=== PATIENT | male | born 1995 | race Caucasian/White ===

== ENCOUNTER 2017-01-26 08:06 | Emergency (ER) | payer MEDICAID, SELFPAY ==
[~2017-01-26] VITALS: Ht 182.9 cm; Wt 84.0 kg
[2017-01-26] MEDS ORDERED: ALBUTEROL/IPRATROPIUM 2.5MG/0.5MG, 3 ML NPPB ONE (08:30)
[2017-01-26] MEDS ORDERED: ALBUTEROL/IPRATROPIUM 2.5MG/0.5MG, 3 ML ONE (08:59)
[2017-01-26 09:49] LABS: PATH.CAST-FLAG NOT PRESENT; SPERM-FLAG NOT PRESENT; SRC-FLAG NOT PRESENT; XTAL-FLAG NOT PRESENT; YLC-FLAG NOT PRESENT
[2017-01-26 10:10] VITALS: BP 108/65
== END 2017-01-26 10:42 | disposition home or self-care (01) ==
LOC: ED 08:31
DX: J45.41 Moderate persistent asthma with (acute) exacerbation (principal)
CPT/HCPCS: 71020; 81001; 87086; 93005; 94640; 99285; J7512; J7620

== ENCOUNTER 2017-10-07 10:18 | Emergency (ER) | payer SELFPAY ==
[~2017-10-07] VITALS: Ht 185.4 cm; Wt 82.1 kg
[2017-10-07 10:19] VITALS: BP 114/76
[2017-10-07] MEDS ORDERED: IBUPROFEN 200 MG TABLET ONE (10:53)
[2017-10-07] MEDS ORDERED: IBUPROFEN 200 MG TABLET PO ONE (11:00)
== END 2017-10-07 11:34 | disposition home or self-care (01) ==
LOC: ED 11:28
DX: S90.32XA Contusion of left foot, initial encounter (principal); J45.909 Unspecified asthma, uncomplicated; X58.XXXA Exposure to other specified factors, initial encounter; Y93.89 Activity, other specified; Y92.89 Other specified places as the place of occurrence of the external cause; Y99.8 Other external cause status
CPT/HCPCS: 99284

== ENCOUNTER 2018-09-05 01:02 | Emergency (ER) | payer MEDICAID ==
[~2018-09-05] VITALS: Ht 182.9 cm; Wt 77.0 kg
--- NOTE | 2018-09-05 01:04 | NUR ---
PT BIB [facility] FOR RIGHT ANKLE PAIN AND SWELLING. PT STATES HE SKATES A LOT, BUT DENIES ANY KNOWN INJURIES. PT IN [facility] AT THIS TIME, AWAITING ERP. PT VSS UPON ARRIVAL TO [facility] ED. PT VERBALIZES UNDERSTANDING OF ER PROCESS. CALL LIGHT IS WITHIN REACH.
[2018-09-05] MEDS ORDERED: ALBU0.63 NEB (01:22)
[2018-09-05] MEDS ORDERED: ACETAMINOPHEN 500 MG TABLET ONE (01:24)
[2018-09-05] MEDS ORDERED: IBUPROFEN 600 MG TABLET ONE (01:24)
[2018-09-05] MEDS ORDERED: DIPH,PERTUSS(ACELL),TET VAC/PF 0.5 ML IM-VACC ONE ×2 (01:25→01:30)
[2018-09-05] MEDS ORDERED: ACETAMINOPHEN 500 MG TABLET PO ONE (01:30)
[2018-09-05] MEDS ORDERED: IBUPROFEN 600 MG TABLET PO ONE (01:30)
--- NOTE | 2018-09-05 01:32 | NUR ---
BREAK RN: PT RESTING ON GURNEY, MONITORS APPLIED, SIDERAILS UP X2, PT MEDICATED PER MAR, CALL LIGHT WITHIN REACH
[2018-09-05 01:33] VITALS: BP 107/67
[2018-09-05 01:42] LABS: BASOPHILS # (AUTO) 0.04 x10^3/uL (0-0.1); BASOPHILS % (AUTO) 1 % (0-1); EOSINOPHILS # (AUTO) 0.29 x10^3/uL (0-0.4); EOSINOPHILS % (AUTO) 5 % (1-7); LYMPHOCYTES # (AUTO) 1.99 x10^3/uL (1-3.4); LYMPHOCYTES % (AUTO) 31 % (22-44); MD NO; MEAN CORPUSCULAR HEMOGLOBIN 29.7 pg (27.5-34.5); MEAN CORPUSCULAR VOLUME 89.8 fL (81-97); MONOCYTES # (AUTO) 0.61 x10^3/uL (0.2-0.8); MONOCYTES % (AUTO) 10 % (2-9); NEUTROPHILS # (AUTO) 3.42 x10^3/uL (1.8-6.8); NEUTROPHILS % (AUTO) 54 % (42-75); PLATELET COUNT 227 x10^3/uL (130-400); RED BLOOD COUNT 4.51 x10^6/uL (4.38-5.82); RED CELL DISTRIBUTION WIDTH 14.1 % (9.4-14.8)
[2018-09-05 01:47] LABS: ALBUMIN 3.6 g/dL (3.4-5.0); ANION GAP 4 mmol/L (5-15); CALCIUM 8.4 mg/dL (8.5-10.1); CHLORIDE 111 mmol/L (98-107); CREATININE 1.03 mg/dL (0.7-1.3)
[2018-09-05] MEDS ORDERED: LIDOCAINE-MPF 1%, 2ML ONE (02:07)
[2018-09-05] MEDS ORDERED: LIDOCAINE 1%, 2ML INFIL ONE (02:30)
[2018-09-05] MEDS ORDERED: SULFAMETH./TRIMETHOPRIM DS 800MG/160MG TABLET ONE (03:17)
[2018-09-05] MEDS ORDERED: CEPHALEXIN 500 MG CAPSULE ONE (03:17)
--- NOTE | 2018-09-05 03:21 | NUR ---
PT MEDICATED PER MAR.
[2018-09-05] MEDS ORDERED: SULFAMETH./TRIMETHOPRIM DS 800MG/160MG TABLET PO ONE (03:30)
[2018-09-05] MEDS ORDERED: CEPHALEXIN 500 MG CAPSULE PO ONE (03:30)
--- NOTE | 2018-09-05 04:45 | NUR ---
PT D/C WITH D/C SUMMARY AND SCRIPTS. ALL QUESTIONS ANSWERED. PT PROVIDED WITH CRUTCHES FOR D/C HOME. PT ABLE TO PERFORM RETURN DEMONSTRATION OF CORRECT USE OF CRUTCHES. PT AMBULATES WITH CRUTCHES TO REGISTRATION DESK FOR D/C BACK TO HOTEL ROOM. PT DENIES ANY OTHER NEEDS PERTAINING TO THIS VISIT.
== END 2018-09-05 04:48 | disposition home or self-care (01) ==
LOC: ED 01:11
DX: L03.115 Cellulitis of right lower limb (principal); J45.909 Unspecified asthma, uncomplicated; F17.200 Nicotine dependence, unspecified, uncomplicated
CPT/HCPCS: 20605; 36415; 73610; 80048; 82040; 85025; 90471; 90715; 99284; J3490

== ENCOUNTER 2020-01-14 17:33 | Emergency (ER) | payer SELFPAY ==
[~2020-01-14] VITALS: Ht 182.9 cm; Wt 79.4 kg
[~2020-01-14 17:33] MED LIST: ALBU0.63 NEB
[2020-01-14] MEDS ORDERED: LIDOCAINE 1%-EPI 1:100K, 20ML ONE (18:42)
[2020-01-14] MEDS ORDERED: LIDOCAINE 1%-EPI 1:100K, 20ML SQ ONE (19:00)
--- NOTE | 2020-01-14 19:00 | NUR ---
RECEIVED REPORT, ASSUMED CARE OF 24 YEAR OLD MALE TO ED FOR POSTERIOR HEAD LACERATION. HE IS CURRENTLY AWAITING CLOSURE OF WOUND W [place]. HE IS ASLEEP YET ROUSABLE TO VOICE. WOUND WILL BE IRRIGATED THEN REPAIRED.
[2020-01-14] MEDS ORDERED: NEOSPORIN OINT. PKT 1 PACKET ONE (20:17)
[2020-01-14 20:30] VITALS: BP 124/74
--- NOTE | 2020-01-14 20:31 | NUR ---
POST WOUND CLOSURE, PATIENT WAS GIVEN WASHCLOTHS FOR LEGS AND NEOPSPORIN WAS APPLIED TO LEG WOUNDS. HE WAS GIVEN INSTRUCTIONS WHEN TO RETURN FOR STAPLE REMOVAL AND VERBALIZED UNDERSTANDING.
== END 2020-01-14 20:35 ==
LOC: ED 20:29
DX: S01.01XA Laceration without foreign body of scalp, initial encounter (principal); S09.90XA Unspecified injury of head, initial encounter; J45.909 Unspecified asthma, uncomplicated; F17.200 Nicotine dependence, unspecified, uncomplicated; W01.0XXA Fall on same level from slipping, tripping and stumbling without subsequent striking against object, initial encounter; Y93.79 Activity, other specified sports and athletics; Y92.410 Unspecified street and highway as the place of occurrence of the external cause; Y99.8 Other external cause status
CPT/HCPCS: 12002; 99284

== ENCOUNTER 2020-06-10 10:35 | Emergency (ER) | payer SELFPAY ==
[~2020-06-10] VITALS: Ht 182.9 cm; Wt 70.0 kg
--- NOTE | 2020-06-10 10:51 | NUR ---
PT JASON FROM [facility], C/O "GUTS GETTING RIPPED FROM ABD" RADIATING TO L SHOULDER, ONSET 0800 TODAY. LAST METH USE YESTERDAY PER EMS. 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 PT AXOX4, CHANGED INTO GOWN, MONITORS IN PLACE, CALL LIGHT WITHIN REACH.
[2020-06-10] MEDS ORDERED: LORazepam 1MG TABLET PO ONE (11:00)
[2020-06-10] MEDS ORDERED: LORazepam 0.5MG TABLET ONE (11:00)
[2020-06-10] MEDS ORDERED: LORazepam 1MG TABLET ONE (11:06)
[2020-06-10 11:50] LABS: BASOPHILS % (AUTO) 1 % (0-1); EOSINOPHILS % (AUTO) 3 % (1-7); LYMPHOCYTES % (AUTO) 16 % (22-44); MEAN CORPUSCULAR HEMOGLOBIN 29.2 pg (27.5-34.5); MEAN CORPUSCULAR HGB CONC 33.6 g/dL (33.2-36.2); MEAN PLATELET VOLUME 6.9 fL (7.4-10.4); MONOCYTES % (AUTO) 16 % (2-9); NEUTROPHILS % (AUTO) 65 % (42-75); PLATELET COUNT 293 x10^3/uL (130-400); RED BLOOD COUNT 4.92 x10^6/uL (4.38-5.82); RED CELL DISTRIBUTION WIDTH 14.3 % (9.4-14.8)
[2020-06-10 11:55] LABS: MD NO
[2020-06-10 12:00] LABS: CHLORIDE 103 mmol/L (98-107)
[2020-06-10 12:18] LABS: ALANINE AMINOTRANSFERASE 63 U/L (12-78); ALBUMIN 3.4 g/dL (3.4-5.0); ALKALINE PHOSPHATASE 133 U/L (45-117); ANION GAP 5 mmol/L (5-15); BILIRUBIN,TOTAL 0.5 mg/dL (0.2-1.0); CALCIUM 8.9 mg/dL (8.5-10.1); CREATININE 1.07 mg/dL (0.7-1.3); TOTAL PROTEIN 7.4 g/dL (6.4-8.2); TROPONIN I < 0.015 ng/mL (0.000-0.045)
[2020-06-10 12:23] VITALS: BP 106/67
--- NOTE | 2020-06-10 12:23 | NUR ---
BEDSIDE FOR REASSESSMENT
--- NOTE | 2020-06-10 12:46 | NUR ---
Patient given discharge instructions and they have confirmed that they understand the instructions. Patient ambulatory with steady gait.
== END 2020-06-10 12:47 | disposition home or self-care (01) ==
LOC: ED 12:46
DX: R07.89 Other chest pain (principal); M25.512 Pain in left shoulder; M79.602 Pain in left arm; R94.31 Abnormal electrocardiogram [ECG] [EKG]; F17.210 Nicotine dependence, cigarettes, uncomplicated; J45.909 Unspecified asthma, uncomplicated
CPT/HCPCS: 36415; 71045; 80053; 84484; 85025; 93005; 99285; 99406

== ENCOUNTER 2020-07-04 19:19 | Emergency (ER) | payer SELFPAY ==
[~2020-07-04] VITALS: Ht 182.9 cm; Wt 78.0 kg
[2020-07-04] MEDS ORDERED: ONDANSETRON 2MG/ML, 2ML ONE (19:51)
[2020-07-04] MEDS ORDERED: HALOPERIDOL 5 MG/ML ONE (19:51)
[2020-07-04] MEDS ORDERED: SODIUM CHLORIDE 0.9% 1,000ML IVBOLUS ONE (20:00)
[2020-07-04] MEDS ORDERED: HALOPERIDOL 5 MG/ML IVPush ONE (20:00)
[2020-07-04] MEDS ORDERED: ONDANSETRON 2MG/ML, 2ML IVPush ONE (20:00)
[2020-07-04] MEDS ORDERED: SODIUM CHLORIDE 0.9% 1,000 ML IV ONE (20:00)
--- NOTE | 2020-07-04 20:15 | NUR ---
Pt with multiple complaints of pains that come and go. Pt very anxious but cooperative. Pt states feeling like hes on fire, abd pain, throat pain, that will come and go every few mins. Pt admits to smoking meth yesterday. Pt with stable VS. Pt EKG complete. Pt on quality assurance monitor body. Will monitor.
[2020-07-04 20:21] LABS: BASOPHILS % (AUTO) 1 % (0-1); EOSINOPHILS % (AUTO) 4 % (1-7); LYMPHOCYTES % (AUTO) 27 % (22-44); MEAN CORPUSCULAR HEMOGLOBIN 28.6 pg (27.5-34.5); MEAN CORPUSCULAR HGB CONC 33.5 g/dL (33.2-36.2); MEAN PLATELET VOLUME 6.9 fL (7.4-10.4); MONOCYTES % (AUTO) 14 % (2-9); NEUTROPHILS % (AUTO) 54 % (42-75); PLATELET COUNT 286 x10^3/uL (130-400); RED BLOOD COUNT 4.85 x10^6/uL (4.38-5.82); RED CELL DISTRIBUTION WIDTH 14.3 % (9.4-14.8)
[2020-07-04 20:24] LABS: MD NO
[2020-07-04 20:30] LABS: ALBUMIN 3.5 g/dL (3.4-5.0); ANION GAP 5 mmol/L (5-15); CALCIUM 8.8 mg/dL (8.5-10.1); CHLORIDE 107 mmol/L (98-107)
[2020-07-04 20:32] LABS: ALANINE AMINOTRANSFERASE 57 U/L (12-78); ALKALINE PHOSPHATASE 112 U/L (45-117); BILIRUBIN,TOTAL 0.6 mg/dL (0.2-1.0); CREATININE 1.14 mg/dL (0.7-1.3); TOTAL PROTEIN 7.4 g/dL (6.4-8.2)
--- NOTE | 2020-07-04 21:38 | NUR ---
Pt calm in room. Sleeping, stable VS. Non labored breathing, in no distress. Warm blanket given. Pt on monitor. Will monitor.
[2020-07-05 00:41] VITALS: BP 122/53
--- NOTE | 2020-07-05 00:43 | NUR ---
IV dc'd intact. Attempts to find pt a coat but pt insists he is fine. Pt sent home with blanket. Pt fully A&O with plan to go to his Girlfriends house. Patient/Caregiver given discharge instructions and they have confirmed that they understand the instructions. Patient ambulatory with steady gait.
== END 2020-07-05 00:45 | disposition home or self-care (01) ==
LOC: ED 19:40
DX: F15.10 Other stimulant abuse, uncomplicated (principal); R07.89 Other chest pain; R94.31 Abnormal electrocardiogram [ECG] [EKG]; M54.2 Cervicalgia; J45.909 Unspecified asthma, uncomplicated; Z72.9 Problem related to lifestyle, unspecified
CPT/HCPCS: 36415; 80053; 85025; 93005; 96361; 96374; 96375; 99285; J1630; J2405; J7030